=== PATIENT | female | born 1995 | race Caucasian/White ===

== ENCOUNTER 2016-10-03 08:31 | Emergency (ER) | payer BC ==
[2016-10-03 09:22] VITALS: BP 101/55
--- NOTE | 2016-10-03 09:36 | UC ---
Respiratory Complaint HPI - HPI Summary HPI Summary: chest congestion/ cough x 5 days + fever, chills, body aches - History of Current Complaint Chief Complaint: UCGeneralIllness Stated Complaint: FEVER,SORE THROAT,COUGH Time Seen by Provider: 10/03/16 08:59 Hx Obtained From: Patient Hx Last Menstrual Period: 09/19/16 Onset/Duration: Gradual Onset, Lasting Days - 5, Still Present Severity Initially: Moderate Severity Currently: Moderate Character: Cough: Nonproductive Aggravating Factors: Exertion, Deep Breaths Associated Signs And Symptoms: Positive: Fever, Chills, URI, Nasal Congestion. Negative: Dyspnea, Wheezing - Allergies/Home Medications Allergies/Adverse Reactions: Allergies Allergy/AdvReac Type Severity Reaction Status Date / Time No Known Allergies Allergy Verified 07/21/16 18:36 PMH/Surg Hx/FS Hx/Imm Hx Endocrine History Of: Denies: Diabetes Cardiovascular History Of: Denies: Cardiac Disorders Respiratory History Of: Reports: Bronchitis Denies: Asthma GI/ History Of: Denies: Gastroesophageal Reflux - Surgical History Surgical History: None - Family History Known Family History: Positive: Cardiac Disease, Diabetes - maternal grandfather - Social History Alcohol Use: Weekly Substance Use Type: None Smoking Status (MU): Never Smoked Tobacco Have You Smoked in the Last Year: No Review of Systems Constitutional: Fever, Chills, Fatigue Skin: Negative Eyes: Negative ENT: Sore Throat, Nasal Discharge Respiratory: Cough Cardiovascular: Negative Gastrointestinal: Negative All Other Systems Reviewed And Are Negative: Yes Physical Exam Triage Information Reviewed: Yes Appearance: Well-Appearing, No Pain Distress, Well-Nourished Vital Signs: Initial Vital Signs Temp 99.8 F 10/03/16 09:06 Pulse 102 10/03/16 09:06 Resp 16 10/03/16 09:06 BP 101/55 10/03/16 09:06 Pulse Ox 100 10/03/16 09:06 Vital Signs Reviewed: Yes Eyes: Positive: Conjunctiva Clear ENT: Positive: Normal ENT inspection, Hearing grossly normal, Pharyngeal erythema, Nasal congestion, Nasal drainage Neck: Positive: Supple, Nontender, No Lymphadenopathy Respiratory: Positive: Chest non-tender, Lungs clear, Normal breath sounds Cardiovascular: Positive: RRR, No Murmur, Pulses Normal Abdominal Exam: Normal Skin Exam: Normal UC Diagnostic Evaluation - Laboratory O2 Sat by Pulse Oximetry: 100 Respiratory Course/Dx - Differential Dx/Diagnosis Provider Diagnoses: BRONCHITIS Discharge - Discharge Plan Condition: Stable Disposition: HOME Prescriptions: Azithromycin TAB* [Zithromax TAB (Z-CELIA) 250 mg #6 tabs] 2 tab PO .TODAY, THEN 1 DAILY #1 celia Fluconazole [Diflucan 150 MG (NF)] 150 mg PO ONCE #1 tab Guaifenesin-Codeine [Cheratussin AC] 10 ml PO Q8H PRN #120 ml MDD 30 ML PRN Reason: Cough Patient Education Materials: Acute Bronchitis (ED) Referrals: Non Staff,Doctor [Primary Care Provider] - If Needed
== END 2016-10-03 09:44 | disposition home or self-care (01) ==
LOC: UCCORT 08:31
DX: J40 Bronchitis, not specified as acute or chronic (principal)
CPT/HCPCS: 99212; G0463

== ENCOUNTER 2017-08-06 13:10 | Emergency (ER) | payer BC ==
[2017-08-06 14:09] VITALS: BP 115/50
--- NOTE | 2017-08-06 14:24 | UC ---
Throat Pain/Nasal Adalid HPI - HPI Summary HPI Summary: Sore throat and hoarse voice for about 3 days. She has had subjective fever. There is right throat pain and right tonsillar pain. She has had a mild cough for a few weeks as well. She is otherwise well and has no chronic respiratory disease. - History of Current Complaint Chief Complaint: UCGeneralIllness Stated Complaint: ST Time Seen by Provider: 08/06/17 14:12 Hx Obtained From: Patient Hx Last Menstrual Period: 07/24/17 Onset/Duration: Gradual Onset, Lasting Days Severity: Moderate Cough: Nonproductive Associated Signs & Symptoms: Positive: Dysphagia, Fever. Negative: Vomiting, Rash - Allergies/Home Medications Allergies/Adverse Reactions: Allergies Allergy/AdvReac Type Severity Reaction Status Date / Time No Known Allergies Allergy Verified 08/06/17 14:06 Home Medications: Home Medications Escitalopram Oxalate [Lexapro 10 mg] 10 mg DAILY 08/06/17 [History Confirmed ] PMH/Surg Hx/FS Hx/Imm Hx Previously Healthy: No - she is on lexapro and adderall. - Surgical History Surgical History: None - Family History Known Family History: Positive: Cardiac Disease, Diabetes - maternal grandfather - Social History Occupation: Student Alcohol Use: None Substance Use Type: None Smoking Status (MU): Never Smoked Tobacco Have You Smoked in the Last Year: No - Immunization History Most Recent Influenza Vaccination: 2017 Review of Systems ENT: Sore Throat, Sinus Congestion Respiratory: Cough All Other Systems Reviewed And Are Negative: Yes Physical Exam Triage Information Reviewed: Yes Appearance: Well-Appearing, No Pain Distress, Well-Nourished Vital Signs: Initial Vital Signs Temp 97.9 F 08/06/17 14:07 Pulse 104 08/06/17 14:07 Resp 16 08/06/17 14:07 BP 115/50 08/06/17 14:07 Pulse Ox 100 08/06/17 14:07 Vital Signs Reviewed: Yes Eye Exam: Normal ENT: Positive: Pharyngeal erythema, Nasal congestion, TMs normal, Tonsillar exudate - scant exudate on the right., Hoarse voice, Uvula midline. Negative: Sinus tenderness Neck: Positive: Supple, Nontender Respiratory: Positive: Lungs clear, Normal breath sounds, No respiratory distress, No accessory muscle use. Negative: Respiratory distress, Decreased breath sounds, Accessory muscle use, Crackles, Rhonchi, Stridor, Wheezing Cardiovascular: Positive: RRR, No Murmur, Pulses Normal, Brisk Capillary Refill Abdomen Description: Positive: Nontender, No Organomegaly, Soft. Negative: Distended, Guarding Musculoskeletal: Positive: Strength Intact, ROM Intact, No Edema Neurological: Positive: Alert, Muscle Tone Normal. Negative: Fatigued Psychological: Positive: Age Appropriate Behavior Skin Exam: Normal Skin: Positive: rashes Throat Pain/Nasal Course/Dx - Course Course Of Treatment: supportive care described. No signs of tonsillitis. - Differential Dx/Diagnosis Provider Diagnoses: uri. nasal congestion. sore throat. Discharge - Discharge Plan Condition: Good Disposition: HOME Patient Education Materials: Pharyngitis (ED), Laryngitis (ED) Referrals: Non Staff,Doctor [Primary Care Provider] -
== END 2017-08-06 14:35 | disposition home or self-care (01) ==
LOC: UCCORT 13:10
DX: J06.9 Acute upper respiratory infection, unspecified (principal); R09.81 Nasal congestion; J02.9 Acute pharyngitis, unspecified
CPT/HCPCS: 87651; 99211; G0463

== ENCOUNTER 2017-10-21 11:32 | Emergency (ER) | payer BC ==
[2017-10-21 13:42] VITALS: BP 118/64
--- NOTE | 2017-10-21 14:19 | UC ---
Respiratory Complaint HPI - HPI Summary HPI Summary: cough x 5 days + chest congestion , wheezing no fever, + chills, body aches nasal congestion - History of Current Complaint Chief Complaint: UCRespiratory Stated Complaint: CONGESTION Time Seen by Provider: 10/21/17 13:49 Hx Obtained From: Patient Hx Last Menstrual Period: 07/24/17 Onset/Duration: Gradual Onset, Lasting Days - 5, Still Present Timing: Constant Severity Initially: Moderate Severity Currently: Moderate Pain Intensity: 0 Character: Cough: Productive Aggravating Factors: Exertion, Deep Breaths Alleviating Factors: Nothing Associated Signs And Symptoms: Positive: Wheezing, URI, Nasal Congestion. Negative: Calf Pain, Calf Swelling - Allergies/Home Medications Allergies/Adverse Reactions: Allergies Allergy/AdvReac Type Severity Reaction Status Date / Time No Known Allergies Allergy Verified 10/21/17 13:38 PMH/Surg Hx/FS Hx/Imm Hx Respiratory History: Asthma - Surgical History Surgical History: Yes Surgery Procedure, Year, and Place: [place] teeth - Family History Known Family History: Positive: Cardiac Disease, Diabetes - maternal grandfather - Social History Alcohol Use: Weekly Substance Use Type: None Smoking Status (MU): Never Smoked Tobacco Have You Smoked in the Last Year: No - Immunization History Most Recent Influenza Vaccination: 2017 Review of Systems Constitutional: Fever, Chills, Fatigue Skin: Negative Eyes: Negative ENT: Nasal Discharge Respiratory: Cough Cardiovascular: Negative Is Patient Immunocompromised?: No All Other Systems Reviewed And Are Negative: Yes Physical Exam Triage Information Reviewed: Yes Appearance: Well-Appearing, No Pain Distress, Well-Nourished Vital Signs: Initial Vital Signs Temp 98.6 F 10/21/17 13:39 Pulse 95 10/21/17 13:39 Resp 16 10/21/17 13:39 BP 118/64 10/21/17 13:39 Pulse Ox 99 10/21/17 13:39 Vital Signs Reviewed: Yes Eyes: Positive: Conjunctiva Clear ENT: Positive: Normal ENT inspection, Hearing grossly normal, Pharynx normal Neck: Positive: Supple, Nontender, No Lymphadenopathy Respiratory: Positive: Chest non-tender, Wheezing Cardiovascular: Positive: RRR, No Murmur, Pulses Normal Abdominal Exam: Normal Skin Exam: Normal UC Diagnostic Evaluation - Laboratory O2 Sat by Pulse Oximetry: 99 Respiratory Course/Dx - Differential Dx/Diagnosis Provider Diagnoses: bronchitis Discharge - Discharge Plan Condition: Stable Disposition: HOME Prescriptions: Albuterol HFA INHALER* [Ventolin HFA Inhaler*] 2 puff INH Q4H PRN #1 mdi PRN Reason: Wheezing DOXYcycline CAP(*) [DOXYcycline 100MG CAP(*)] 100 mg PO BID #20 cap Patient Education Materials: Acute Bronchitis (ED) Referrals: No Primary Care Phys,NOPCP [Primary Care Provider] - If Needed
== END 2017-10-21 14:22 | disposition home or self-care (01) ==
LOC: UCCORT 11:32
DX: J40 Bronchitis, not specified as acute or chronic (principal)
CPT/HCPCS: 99212; G0463

== ENCOUNTER 2018-01-01 10:55 | Emergency (ER) | payer BC ==
--- NOTE | 2018-01-01 13:39 | UC ---
Respiratory Complaint HPI - HPI Summary HPI Summary: Patient's urgent care today with 3 days of cough congestion hoarse voice. Patient denies fevers or chills. - History of Current Complaint Chief Complaint: UCGeneralIllness Stated Complaint: COUGH/CONGESTION Time Seen by Provider: 01/01/18 13:30 Hx Obtained From: Patient Hx Last Menstrual Period: 1 month ago, on b control pill ?: No Onset/Duration: Sudden Onset, Lasting Days - 3, Still Present Timing: Constant Severity Initially: Mild Severity Currently: Moderate Pain Intensity: 5 Pain Scale Used: 0-10 Numeric Character: Cough: Nonproductive Aggravating Factors: Nothing Alleviating Factors: Nothing Associated Signs And Symptoms: Positive: URI, Nasal Congestion, Hoarseness - Allergies/Home Medications Allergies/Adverse Reactions: Allergies Allergy/AdvReac Type Severity Reaction Status Date / Time No Known Allergies Allergy Verified 01/01/18 13:10 PMH/Surg Hx/FS Hx/Imm Hx Previously Healthy: Yes - Surgical History Surgical History: Yes Surgery Procedure, Year, and Place: [place] teeth - Family History Known Family History: Positive: Cardiac Disease, Diabetes - maternal grandfather - Social History Occupation: Student Lives: With Family Alcohol Use: Weekly Substance Use Type: None Smoking Status (MU): Never Smoked Tobacco Have You Smoked in the Last Year: No - Immunization History Most Recent Influenza Vaccination: 2017 Review of Systems Constitutional: Negative Skin: Negative Eyes: Negative ENT: Sore Throat, Ear Ache, Nasal Discharge Respiratory: Cough Cardiovascular: Negative Gastrointestinal: Negative Genitourinary: Negative Motor: Negative Neurovascular: Negative Musculoskeletal: Negative Neurological: Negative Psychological: Negative Is Patient Immunocompromised?: No All Other Systems Reviewed And Are Negative: Yes Physical Exam Triage Information Reviewed: Yes Appearance: Well-Appearing, No Pain Distress, Well-Nourished Vital Signs: Initial Vital Signs Temp 98.6 F 01/01/18 13:06 Pulse 77 01/01/18 13:06 Resp 14 01/01/18 13:06 BP 117/75 01/01/18 13:06 Pulse Ox 99 01/01/18 13:06 Vital Signs Reviewed: Yes Eye Exam: Normal Eyes: Positive: Conjunctiva Clear ENT Exam: Normal ENT: Positive: Normal ENT inspection, Hearing grossly normal, Pharynx normal, Nasal congestion, Nasal drainage, TMs normal, Uvula midline. Negative: Tonsillar swelling, Tonsillar exudate, Trismus, Muffled voice, Hoarse voice, Dental tenderness, Sinus tenderness Dental Exam: Normal Neck exam: Normal Neck: Positive: Supple, Nontender, No Lymphadenopathy Respiratory Exam: Normal Respiratory: Positive: Chest non-tender, Lungs clear, Normal breath sounds, No respiratory distress, No accessory muscle use Cardiovascular Exam: Normal Cardiovascular: Positive: RRR, No Murmur, Pulses Normal, Brisk Capillary Refill Musculoskeletal Exam: Normal Musculoskeletal: Positive: Strength Intact, ROM Intact, No Edema Neurological Exam: Normal Neurological: Positive: Alert, Muscle Tone Normal Psychological Exam: Normal Skin Exam: Normal UC Diagnostic Evaluation - Laboratory O2 Sat by Pulse Oximetry: 99 Respiratory Course/Dx - Course Course Of Treatment: Albuterol, Tessalon Perles, Mucinex D, Tylenol ibuprofen for pain, increase fluids rest. If symptoms worsen or fail to improve in the next 3-5 days may consider antibiotic treatment - Differential Dx/Diagnosis Provider Diagnoses: Upper respiratory tract infection, bronchospastic cough Discharge - Sign-Out/Discharge Documenting (check all that apply): Discharge/Admit/Transfer - Discharge Plan Condition: Stable Disposition: HOME Prescriptions: Albuterol HFA INHALER* [Ventolin HFA Inhaler*] 1 - 2 puff INH Q6H PRN #1 mdi PRN Reason: cough Azithromycin TAB* [Zithromax TAB (Z-CELIA) 250 mg #6 tabs] 2 tab PO .TODAY, THEN 1 DAILY #1 celia Benzonatate CAP* [Tessalon 100 MG CAP*] 100 - 200 mg PO TID #40 cap Patient Education Materials: Decongestant/Expectorant (By mouth), Acute Bronchitis (ED) Referrals: [facility] [Outside] - If Needed Additional Instructions: [place], please increase fluids, Tylenol /ibuprofen for pain Tessalon Perle for cough Mucinex D for sinus congestion and fullness and cough Albuterol inhaler for chest tightness and cough If you're not getting better or if you get worse consider an antibiotic - Billing Disposition and Condition Condition: STABLE Disposition: HOME
[2018-01-01 14:24] VITALS: BP 117/75
== END 2018-01-01 13:49 | disposition home or self-care (01) ==
LOC: UCCORT 10:55
DX: J06.9 Acute upper respiratory infection, unspecified (principal); R05 Cough
CPT/HCPCS: 99212; G0463

== ENCOUNTER 2018-01-14 21:46 | Emergency (ER) | payer BC ==
[2018-01-14 21:56] VITALS: BP 135/60
--- NOTE | 2018-01-14 22:07 | UC ---
Respiratory Complaint HPI - HPI Summary HPI Summary: Pt c/o right lower chest pain, that began two days ago. Pt is "just getting over " bronchitis and denies any worsening of cough, fever, wheezing, sob or hemoptysis. Pain is reproducible with palpation. - History of Current Complaint Chief Complaint: UCChestPain Stated Complaint: RIB PAIN UPON DEEP BREATHING Time Seen by Provider: 01/14/18 21:50 Hx Obtained From: Patient Hx Last Menstrual Period: 01/01 ?: No Onset/Duration: Gradual Onset, Lasting Days Timing: Intermittent Episodes Severity Initially: Mild Severity Currently: None Pain Intensity: 6 Aggravating Factors: Deep Breaths Alleviating Factors: Spontaneous Resolution Associated Signs And Symptoms: Positive: Negative - Risk Factors Pulmonary Embolism Risk Factors: Oral Contraceptives Cardiac Risk Factors: Negative Pseudomonas Risk Factors: Negative Tuberculosis Risk Factors: Negative - Allergies/Home Medications Allergies/Adverse Reactions: Allergies Allergy/AdvReac Type Severity Reaction Status Date / Time No Known Allergies Allergy Verified 01/14/18 21:57 Home Medications: Home Medications Ibuprofen TAB* [Motrin TAB* 400 MG] 400 mg PO ONCE PRN 01/14/18 [History Confirmed 01/14/18] PMH/Surg Hx/FS Hx/Imm Hx Previously Healthy: Yes - Surgical History Surgical History: Yes Surgery Procedure, Year, and Place: [place] teeth 09/2017 - Family History Known Family History: Positive: Cardiac Disease, Diabetes - maternal grandfather - Social History Occupation: Student Lives: Dormitory/Roommates Alcohol Use: Weekly Substance Use Type: None Smoking Status (MU): Never Smoked Tobacco Have You Smoked in the Last Year: No - Immunization History Most Recent Influenza Vaccination: 2016 Review of Systems Constitutional: Negative Skin: Negative Eyes: Negative ENT: Negative Respiratory: Cough - occasional Cardiovascular: Chest Pain - righty lower chest wall pain Gastrointestinal: Negative Genitourinary: Negative Motor: Negative Neurovascular: Negative Musculoskeletal: Myalgia Neurological: Negative Psychological: Negative Is Patient Immunocompromised?: No All Other Systems Reviewed And Are Negative: Yes Physical Exam Triage Information Reviewed: Yes Appearance: Well-Appearing Vital Signs: Initial Vital Signs Temp 98.7 F 01/14/18 21:51 Pulse 93 01/14/18 21:51 Resp 17 01/14/18 21:51 BP 135/60 01/14/18 21:51 Pulse Ox 100 01/14/18 21:51 Vital Signs Reviewed: Yes Eye Exam: Normal ENT: Positive: Hearing grossly normal Dental Exam: Normal Neck exam: Normal Respiratory Exam: Normal Respiratory: Positive: Lungs clear, Normal breath sounds, No respiratory distress, No accessory muscle use, Other: - right lower chest wall at ribs 6-8 tender with palpation Cardiovascular Exam: Normal Cardiovascular: Positive: RRR, No Murmur Musculoskeletal Exam: Normal Neurological Exam: Normal Psychological Exam: Normal Skin Exam: Normal UC Diagnostic Evaluation - Laboratory O2 Sat by Pulse Oximetry: 100 Respiratory Course/Dx - Differential Dx/Diagnosis Differential Diagnosis/HQI/PQRI: Pulmonary Embolism, Other - chest wall pain, chostochodritis Provider Diagnoses: chest wall pain. chostocondritis Discharge - Sign-Out/Discharge Documenting (check all that apply): Discharge/Admit/Transfer - Discharge Plan Condition: Stable Disposition: HOME Patient Education Materials: Chest Wall Pain (ED), Costochondritis (ED) Referrals: [facility] [Outside] Non Staff,Doctor [Primary Care Provider] - - Billing Disposition and Condition Condition: STABLE Disposition: HOME
== END 2018-01-14 22:11 | disposition home or self-care (01) ==
LOC: UCCORT 21:46
DX: R07.89 Other chest pain (principal); M94.0 Chondrocostal junction syndrome [Tietze]
CPT/HCPCS: 99211; G0463